=== PATIENT | female | born 1960 ===

== ENCOUNTER 2025-02-10 12:30 | Inpatient (IN) | payer OTHER ==
[~2025-02-10] VITALS: Wt 54.0 kg
[2025-02-10] MEDS ORDERED: SIMVASTATIN5 MG (13:31)
[2025-02-10] MEDS ORDERED: PROTONIX40 MG PO (13:31)
[2025-02-14] MEDS ORDERED: CEFTRIAXONE SODIUM 2,000 MG VIAL ONE (08:35)
[2025-02-14] MEDS ORDERED: METRONIDAZOLE/SODIUM CHLORIDE 500 MG/100 ML PIGGYBACK IV ONE (08:35)
[2025-02-14] MEDS ORDERED: LIDOCAINE HCL 1%/EPINEPHRINE 20ML VIAL IJ ONE (09:14)
[2025-02-14] MEDS ORDERED: POVIDONE-IODINE 118 ML BOTT TOP ONE (09:14)
[2025-02-14] MEDS ORDERED: HEMOSTATIC MATRIX 1 KIT KIT TOP ONE (09:14)
[2025-02-14] MEDS ORDERED: ONDANSETRON HCL 2 MG/ML VIAL IV PRN (12:45)
[2025-02-14] MEDS ORDERED: RINGERS SOLUTION,LACTATED 1,000 ML IV SCH (12:45)
[2025-02-14] MEDS ORDERED: OxyCODONE HCL 5 MG TABLET (ROXICODONE) PO PRN (12:45)
[2025-02-14] MEDS ORDERED: MORPHINE SULFATE 4 MG/ML CARTRIDGE IV PRN (12:45)
[2025-02-14] MEDS ORDERED: HYOSCYAMINE SULFATE 0.125 MG TAB.SUBL SL SCH (13:00)
[2025-02-14 15:00] VITALS: BP 124/78; O2SAT 95
[2025-02-14 16:00] VITALS: BP 134/87; O2SAT 97
[2025-02-14] MEDS ORDERED: METRONIDAZOLE/SODIUM CHLORIDE 500 MG/100 ML PIGGYBACK IV SCH (17:00)
[2025-02-14] MEDS ORDERED: LACTOBACILLUS ACIDOPHILUS 1 CAP CAP PO SCH (17:00)
[2025-02-14] MEDS ORDERED: TAMSULOSIN HCL 0.4 MG CAP PO SCH (17:00)
[2025-02-14] MEDS ORDERED: GABAPENTIN 300 MG CAPSULE PO SCH (17:00)
[2025-02-14] MEDS ORDERED: ACETAMINOPHEN 500 MG GEL..CAP PO SCH (18:00)
[2025-02-14 19:52] LABS: BASO % 0.4 % (0.1-1.2); HEMATOCRIT 35.1 % (34.1-44.9); HEMOGLOBIN 11.5 g/dL (11.2-15.7); LYMPH # 0.48 (1.18-3.74); MEAN CORPUSCULAR HEMOGLOBIN 28.8 pg (25.6-32.2); MONO # 0.84 (0.24-0.82); MONO % 6.9 % (4.7-12.5); NEUT # 10.71 (1.56-6.13); NEUT % 88.3 % (34.0-71.1); PLATELET COUNT 280 K/uL (163-369); RED BLOOD COUNT 3.99 M/uL (3.93-5.22); RED CELL DISTRIBUTION WIDTH 13.5 % (11.6-14.4)
[2025-02-14] MEDS ORDERED: CIPROFLOXACIN IN 5 % DEXTROSE 400 MG/200 ML PIGGYBAG IV SCH (21:00)
[2025-02-14] MEDS ORDERED: FAMOTIDINE/PF 20 MG/2 ML VIAL IV PUSH SCH (21:00)
[2025-02-15 01:16] VITALS: BP 132/78; O2SAT 99
[2025-02-15 07:40] LABS: ALBUMIN 2.5 gm/dL (3.4-5.0); CALCIUM 7.7 mg/dL (8.5-10.1); CREATININE SERUM 0.62 mg/dL (0.55-1.02); GFR 96.6; MAGNESIUM 1.5 mg/dL (1.8-2.4); POTASSIUM 4.17 mEq/L (3.5-5.1)
[2025-02-15 08:42] LABS: BASO % 0.4 % (0.1-1.2); HEMATOCRIT 29.2 % (34.1-44.9); HEMOGLOBIN 9.5 g/dL (11.2-15.7); LYMPH # 1.41 (1.18-3.74); LYMPH % 13.3 % (19.3-53.1); MEAN CORPUSCULAR HEMOGLOBIN 28.4 pg (25.6-32.2); MONO # 1.13 (0.24-0.82); MONO % 10.7 % (4.7-12.5); NEUT # 7.99 (1.56-6.13); NEUT % 75.2 % (34.0-71.1); PLATELET COUNT 241 K/uL (163-369); RED BLOOD COUNT 3.34 M/uL (3.93-5.22); RED CELL DISTRIBUTION WIDTH 13.6 % (11.6-14.4)
[2025-02-15 09:04] VITALS: BP 92/58; O2SAT 95
[2025-02-15 16:00] VITALS: BP 93/60; O2SAT 95
[2025-02-15] MEDS ORDERED: SIMVASTATIN 20 MG TABLET PO SCH (17:00)
[2025-02-15] MEDS ORDERED: ENOXAPARIN SODIUM 40 MG/0.4 ML SYRINGE SUBCUTANEO SCH (17:00)
[2025-02-16 00:31] VITALS: BP 100/61; O2SAT 100
[2025-02-16 08:07] LABS: BASO % 0.3 % (0.1-1.2); EOS # 0.03 (0.04-0.54); EOS % 0.3 % (0.7-7.0); LYMPH # 1.38 (1.18-3.74); LYMPH % 13.5 % (19.3-53.1); MEAN CORPUSCULAR HEMOGLOBIN 29.4 pg (25.6-32.2); MONO # 1.03 (0.24-0.82); MONO % 10.1 % (4.7-12.5); NEUT # 7.73 (1.56-6.13); NEUT % 75.4 % (34.0-71.1); PLATELET COUNT 200 K/uL (163-369); RED BLOOD COUNT 2.55 M/uL (3.93-5.22); RED CELL DISTRIBUTION WIDTH 13.6 % (11.6-14.4)
[2025-02-16 08:22] LABS: CALCIUM 7.9 mg/dL (8.5-10.1); CREATININE SERUM 0.53 mg/dL (0.55-1.02); GFR 115.77; MAGNESIUM 1.8 mg/dL (1.8-2.4); POTASSIUM 3.91 mEq/L (3.5-5.1)
[2025-02-16 08:34] LABS: HEMOGLOBIN 7.5 g/dL (11.2-15.7)
[2025-02-16 08:39] LABS: HEMATOCRIT 22.2 % (34.1-44.9)
[2025-02-16] MEDS ORDERED: ENOXAPARIN SODIUM 40 MG/0.4 ML SYRINGE SUBCUTANEO SCH (09:00)
[2025-02-16 09:21] VITALS: BP 99/61; O2SAT 95
[2025-02-16 10:02] LABS: PHOSPHOROUS 1.4 mg/dL (2.5-4.9)
[2025-02-16] MEDS ORDERED: POTASSIUM PHOS,M-BASIC-D-BASIC 3 MM/ML VIAL IV NR (10:15)
[2025-02-16 16:00] VITALS: BP 131/81; O2SAT 96
[2025-02-17 00:39] VITALS: BP 96/58; O2SAT 98
[2025-02-17 07:54] VITALS: BP 107/67; O2SAT 100
[2025-02-17] MEDS ORDERED: Cyanocobalamin/Mecobalamin 1 TAB.SL SL SCH (09:32)
[2025-02-17] MEDS ORDERED: FUROsemide 20 MG/2 ML VIAL IV SCH (09:45)
[2025-02-17] MEDS ORDERED: SOD FERRIC GLUC COMPLX/SUCROSE 62.5 MG in 0.9 % SODIUM CHLORIDE 50 ML IV SCH (09:58)
[2025-02-17] MEDS ORDERED: AMINOCAPROIC ACID 250 MG/ML VIAL IV STA (11:16)
[2025-02-17 11:59] LABS: BASO % 0.4 % (0.1-1.2); EOS # 0.09 (0.04-0.54); EOS % 1.2 % (0.7-7.0); HEMATOCRIT 28.2 % (34.1-44.9); LYMPH % 21.1 % (19.3-53.1); MEAN CORPUSCULAR HEMOGLOBIN 28.6 pg (25.6-32.2); MONO # 0.65 (0.24-0.82); MONO % 8.6 % (4.7-12.5); NEUT # 5.17 (1.56-6.13); NEUT % 67.9 % (34.0-71.1); PLATELET COUNT 199 K/uL (163-369); RED BLOOD COUNT 3.36 M/uL (3.93-5.22); RED CELL DISTRIBUTION WIDTH 15.2 % (11.6-14.4)
[2025-02-17 12:06] LABS: HEMOGLOBIN 9.6 g/dL (11.2-15.7)
[2025-02-17] MEDS ORDERED: AMINOCAPROIC ACID 20 MG/ML ML IV SCH (13:00)
[2025-02-17] MEDS ORDERED: VANCOMYCIN HCL 1,000 MG VIAL ONE (15:41)
[2025-02-17 15:42] VITALS: BP 92/54; O2SAT 100
[2025-02-17] MEDS ORDERED: VANCOMYCIN HCL 1,000 MG VIAL IV SCH (17:00)
[2025-02-18] MEDS ORDERED: VANCOMYCIN HCL 1,000 MG VIAL ONE ×3 (00:26→23:22)
[2025-02-18 00:33] VITALS: BP 100/67; O2SAT 95
[2025-02-18 07:06] LABS: BASO % 0.6 % (0.1-1.2); EOS % 4.6 % (0.7-7.0); HEMATOCRIT 28.8 % (34.1-44.9); HEMOGLOBIN 9.6 g/dL (11.2-15.7); LYMPH # 2.07 (1.18-3.74); LYMPH % 31.7 % (19.3-53.1); MEAN CORPUSCULAR HEMOGLOBIN 28.4 pg (25.6-32.2); MONO # 0.63 (0.24-0.82); MONO % 9.7 % (4.7-12.5); NEUT # 3.38 (1.56-6.13); NEUT % 51.9 % (34.0-71.1); PLATELET COUNT 218 K/uL (163-369); RED BLOOD COUNT 3.38 M/uL (3.93-5.22); RED CELL DISTRIBUTION WIDTH 15.4 % (11.6-14.4)
[2025-02-18 08:00] VITALS: BP 109/71; O2SAT 96
[2025-02-18 08:33] LABS: CALCIUM 7.8 mg/dL (8.5-10.1); CREATININE SERUM 0.45 mg/dL (0.55-1.02); GFR 139.83; MAGNESIUM 1.7 mg/dL (1.8-2.4); PHOSPHOROUS 2.3 mg/dL (2.5-4.9); POTASSIUM 3.36 mEq/L (3.5-5.1)
[2025-02-18 14:43] LABS: ABG PH 7.445 (7.35-7.45); ABG PO2 48.6 mmHg (80-100); ABG pCO2 42.1 mmHg (35-45); BASE EXCESS 3.8 mmol/l; BICARBONATE 28.3 mmol/l (23-25); SaO2 86.2 %; Tco2 29.5 mmol/l; allen test SATISFACTORY; mode ROOM AIR; o2 21 %; puncture site RADIAL LEFT
[2025-02-18 16:00] VITALS: BP 99/60; O2SAT 97
[2025-02-18] MEDS ORDERED: FAMOtidine 20 MG TABLET PO SCH (21:00)
[2025-02-19 01:13] VITALS: BP 110/67; O2SAT 97
[2025-02-19 08:00] VITALS: BP 118/80; O2SAT 95
[2025-02-19 08:46] LABS: ABG PH 7.464 (7.35-7.45); ABG pCO2 42.5 mmHg (35-45); BASE EXCESS 5.4 mmol/l; BICARBONATE 29.8 mmol/l (23-25); SaO2 96.4 %; Tco2 31.1 mmol/l
[2025-02-19] MEDS ORDERED: LEVALBUTEROL HCL 0.63 MG/3 ML SOLUTION IH SCH (09:18)
[2025-02-19 13:48] LABS: allen test SATISFACTORY; mode VENTURY MASK; o2 50 %; puncture site RADIAL LEFT
[2025-02-19 16:45] VITALS: BP 118/75; O2SAT 98
[2025-02-19] MEDS ORDERED: GABAPENTIN 100 MG CAPSULE PO SCH (17:00)
[2025-02-19] MEDS ORDERED: GABAPENTIN 300 MG CAPSULE PO SCH (21:00)
[2025-02-20 01:02] VITALS: BP 112/73; O2SAT 97
[2025-02-20 07:59] LABS: BASO % 0.7 % (0.1-1.2); EOS # 0.27 (0.04-0.54); HEMATOCRIT 31.3 % (34.1-44.9); LYMPH # 1.51 (1.18-3.74); LYMPH % 22.3 % (19.3-53.1); MEAN CORPUSCULAR HEMOGLOBIN 27.9 pg (25.6-32.2); MONO % 10.3 % (4.7-12.5); NEUT # 4.01 (1.56-6.13); NEUT % 59.3 % (34.0-71.1); PLATELET COUNT 253 K/uL (163-369); RED BLOOD COUNT 3.65 M/uL (3.93-5.22); RED CELL DISTRIBUTION WIDTH 14.8 % (11.6-14.4)
[2025-02-20 08:02] LABS: HEMOGLOBIN 10.2 g/dL (11.2-15.7)
[2025-02-20 08:18] LABS: INR 1.06; PARTIAL THROMBOPLASTIN TIME 29.3 SECONDS (22.0-34.0); PROTHROMBIN TIME 11.5 SECONDS (9.0-11.5)
[2025-02-20 08:33] LABS: CALCIUM 7.8 mg/dL (8.5-10.1); CREATININE SERUM 0.4 mg/dL (0.55-1.02); GFR 160.19; MAGNESIUM 1.7 mg/dL (1.8-2.4); PHOSPHOROUS 3.3 mg/dL (2.5-4.9); POTASSIUM 3.33 mEq/L (3.5-5.1)
[2025-02-20 08:43] VITALS: BP 108/67; O2SAT 80
[2025-02-20] MEDS ORDERED: POLYETHYLENE GLYCOL 3350 17 GM BLIST.PACK PO SCH (09:00)
[2025-02-20] MEDS ORDERED: POTASSIUM CHLORIDE 20MEQ/100ML H2O PB IV NR (09:15)
[2025-02-20] MEDS ORDERED: MAGNESIUM SULFATE IN WATER 50 ML IV NR (09:15)
[2025-02-20 16:00] VITALS: BP 123/72; O2SAT 95
[2025-02-21 01:06] VITALS: BP 131/81; O2SAT 99
[2025-02-21 08:00] VITALS: BP 125/81; O2SAT 96
[2025-02-21 12:18] LABS: ABG PH 7.472 (7.35-7.45); ABG pCO2 37.3 mmHg (35-45); BASE EXCESS 3.1 mmol/l; BICARBONATE 26.7 mmol/l (23-25); SaO2 94.9 %; Tco2 27.8 mmol/l
[2025-02-21] MEDS ORDERED: INTESTINEX680 M1 PO (12:48)
[2025-02-21] MEDS ORDERED: HYOSCYAMINE0.125 M1 SL (12:49)
[2025-02-21 15:05] LABS: allen test SATISFACTORY; mode ROOM AIR; o2 21 %; puncture site RADIAL RIGHT
== END 2025-02-21 13:31 | disposition home or self-care (01) | DRG 330 ==
LOC: O/R 02-14 06:32 → SURH 02-14 06:32
PROVIDERS: Internal Medicine Geriatric Medicine; ADMIT Surgery; ATTEND Surgery
PROC: 0DBP4ZZ Excision of Rectum, Percutaneous Endoscopic Approach (ICD-10-PCS; 2025-02-14)
PROC: 0DNN4ZZ Release Sigmoid Colon, Percutaneous Endoscopic Approach (ICD-10-PCS; 2025-02-14)
PROC: 0DJD8ZZ Inspection of Lower Intestinal Tract, Via Natural or Artificial Opening Endoscopic (ICD-10-PCS; 2025-02-14)
PROC: 0DTN4ZZ Resection of Sigmoid Colon, Percutaneous Endoscopic Approach (ICD-10-PCS; principal; 2025-02-14 11:15)
PROC: BB24YZZ Computerized Tomography (CT Scan) of Bilateral Lungs using Other Contrast (ICD-10-PCS; 2025-02-17)
PROC: 30233N1 Transfusion of Nonautologous Red Blood Cells into Peripheral Vein, Percutaneous Approach (ICD-10-PCS; 2025-02-17)
PROC: 3E0F7GC Introduction of Other Therapeutic Substance into Respiratory Tract, Via Natural or Artificial Opening (ICD-10-PCS; 2025-02-19)
DX: K57.32 Diverticulitis of large intestine without perforation or abscess without bleeding (principal); D62 Acute posthemorrhagic anemia; R93.5 Abnormal findings on diagnostic imaging of other abdominal regions, including retroperitoneum; K62.89 Other specified diseases of anus and rectum; K64.5 Perianal venous thrombosis; K64.4 Residual hemorrhoidal skin tags; R09.02 Hypoxemia; K66.0 Peritoneal adhesions (postprocedural) (postinfection)